=== PATIENT | female | born 1940 | race Caucasian/White ===

== ENCOUNTER → 2017-09-03 | Day surgery (SDC) | payer OTHER ==
[~2017-09-03] MED LIST: FENTANYL CITRATE/PF 100MCG/2 ML INJ ONE; MIDAZOLAM HCL 2 MG/2 ML VIAL ONE; PANTOPRAZOLE 40 MG 10ML VIAL ONE; PROPOFOL IV EMULSION 10 MG/ML 20 ML VIAL ONE; ZOLOFT50 MG PO
--- NOTE | 2017-09-04 00:11 | Operative Report ---
DATE OF PROCEDURE: September 03, 2017 REFERRING PHYSICIAN: Dr. Jose Hooks PROCEDURES PERFORMED 1. Esophagogastroduodenoscopy with biopsies. 2. Colonoscopy with polypectomy and biopsies. INDICATIONS FOR EGD: Heartburn, indigestion. INDICATIONS FOR COLONOSCOPY: Colorectal cancer screening, weight loss. MEDICATION: Patient was done under MAC. Please see anesthesiologist's note. PROCEDURE: With patient in left lateral decubitus position, flexible fiberoptic Olympus gastroscope was introduced into the esophagus under direct visualization without any difficulty. There was some patchy erythema noted in distal esophagus. The scope was then advanced with ease into the stomach traversing a small sliding hiatal hernia. Mucosa overlying the antrum revealed some patchy intense erythema and moderate edema and biopsies were obtained and sent to stain for H. pylori. The mucosa overlying the body appeared somewhat atrophic and biopsies were obtained to rule out atrophic gastritis. The pylorus was of normal contour and shape, was intubated with ease and the scope was advanced all the way to the 2nd portion of the duodenum. The scope was then withdrawn slowly. Mucosa overlying the proximal 2nd portion and the duodenal bulb appeared to be within normal limits. The scope was then withdrawn back into the stomach and retroflexed and the mucosa overlying the fundus and the cardia appeared to be within normal limits. The scope was then straightened out. The stomach was decompressed. Scope was subsequently withdrawn. Patient tolerated the procedure well. IMPRESSIONS 1. Distal esophagitis, mild. 2. Small sliding hiatal hernia. 3. Gastritis, antrum, biopsied. Biopsies sent to stain for Helicobacter pylori. 4. Rule out atrophic gastritis. Body. Biopsies obtained. PLAN: Follow up histology. Initiate Protonix 40 mg 1 p.o. q.a.m a.c. Patient was then turned around and after adequate lubrication of the anal canal, a flexible fiberoptic Olympus colonoscope was inserted into the rectum with ease and advanced all the way to the cecum. An approximately 8-mm sessile polyp was snared from the cecum and additional polyp was hot biopsied from the cecum. The ascending and transverse grossly appeared to be within normal limits. There was some scattered diverticulosis noted, but it was more prominent in the descending and the sigmoid colon. One polyp was snared, 1 polyp was hot biopsied from the descending colon. There was some patchy areas of erythema and low-grade to moderate edema in the sigmoid colon and biopsies were obtained. One polyp was hot biopsied from the sigmoid colon. One polyp was hot biopsied from the rectum. The scope was then retroflexed into the distal rectum and small internal hemorrhoids were noted, none of which was actively bleeding. The scope was then straightened out and was subsequently withdrawn. Patient tolerated the procedure well. IMPRESSIONS 1. Cecal polyps times 2, one snared, one hot biopsied. 2. Diverticulosis. 3. Descending colon polyps times 2, one snared, one hot biopsied. 4. Mild segmental colitis, left colon . 5. Sigmoid colon polyp, hot biopsied. 6. Rectal polyp, hot biopsied. 7. Internal hemorrhoids, none actively bleeding. PLAN 1. Follow up histology. 2. Initiate VSL. 3. DS 1 p.o. daily. 4. Add high-fiber, low-fat diet with the high-fiber supplement. 5. Patient might benefit from a followup colonoscopy in 3 years. 6. A total of 6 polyps were removed. Job#: [id number] cc:JOSE HOOKS MD
== END | disposition home or self-care (01) ==
LOC: OR 14:55
PROVIDERS: ATTEND Internal Medicine Gastroenterology
DX: R63.4 Abnormal weight loss (principal); D12.0 Benign neoplasm of cecum; D12.4 Benign neoplasm of descending colon; D12.8 Benign neoplasm of rectum; K29.50 Unspecified chronic gastritis without bleeding; K31.89 Other diseases of stomach and duodenum; K50.10 Crohn's disease of large intestine without complications; K20.9 Esophagitis, unspecified; K44.9 Diaphragmatic hernia without obstruction or gangrene; K57.30 Diverticulosis of large intestine without perforation or abscess without bleeding; K64.8 Other hemorrhoids; D64.9 Anemia, unspecified; R03.0 Elevated blood-pressure reading, without diagnosis of hypertension; Z88.5 Allergy status to narcotic agent; Z91.048 Other nonmedicinal substance allergy status; Z01.810 Encounter for preprocedural cardiovascular examination; Z96.652 Presence of left artificial knee joint; Z83.79 Family history of other diseases of the digestive system
CPT/HCPCS: 43239; 45384; 45385; 93005; J2250; 45378; 45380